=== PATIENT | male | born 1965 | race Asian ===

== ENCOUNTER 2019-05-28 06:22 | Emergency (ER) | payer OTHER ==
[~2019-05-28] VITALS: Ht 167.6 cm; Wt 73.0 kg
--- NOTE | 2019-05-28 06:38 | NUR ---
THIS IS A 53 YO MALE BIB [facility] FROM [facility], ACCOMAPNIED BY [facility] OFFICER, FOR WITNESS SYNCOPAL EPISODE WITH LOC, UNKNOWN DURATION OF LOSS OF CONSCIOUSNESS. PATIENT STATES HE FELT DIZZY WHEN HE GOT UP TO WALK, THEN PASSED OUT. PER EMS, PATIENT WAS FOUND TO BE BRADYCARDIC IN THE 40'S WHEN WOKE UP, WITH BP 60/PALP. PATIENT BP IMPROVING OVER TIME, LAST BP 112/70 WITH EMS. PATIENT A&OX4, GCS 15 AT THIS TIME, ANSWERS ALL QUESTIONS APPROPRIATELY, SPEAKING IN FULL SENTENCES, DENIES DIZZINESS OR LIGHTHEADED AT THIS TIME. ALL MONITORING IN PLACE, EKG DONE. VSS, NAD, LAW ENFORCEMENT IN ROOM
[2019-05-28 06:50] LABS: BASOPHILS # (AUTO) 0.03 x10^3/uL (0-0.1); BASOPHILS % (AUTO) 1 % (0-1); EOSINOPHILS # (AUTO) 0.07 x10^3/uL (0-0.4); EOSINOPHILS % (AUTO) 1 % (1-7); LYMPHOCYTES # (AUTO) 1.22 x10^3/uL (1-3.4); LYMPHOCYTES % (AUTO) 19 % (22-44); MD NO; MEAN CORPUSCULAR HEMOGLOBIN 29.9 pg (27.5-34.5); MEAN CORPUSCULAR HGB CONC 33.7 g/dL (33.2-36.2); MEAN CORPUSCULAR VOLUME 88.7 fL (81-97); MEAN PLATELET VOLUME 7.1 fL (7.4-10.4); MONOCYTES # (AUTO) 0.34 x10^3/uL (0.2-0.8); MONOCYTES % (AUTO) 6 % (2-9); NEUTROPHILS % (AUTO) 74 % (42-75); PLATELET COUNT 361 x10^3/uL (130-400); RED BLOOD COUNT 3.64 x10^6/uL (4.38-5.82); RED CELL DISTRIBUTION WIDTH 13.5 % (9.4-14.8)
--- NOTE | 2019-05-28 06:58 | NUR ---
REPORT GIVEN TO THADDEUS PAYNE. PLAN OF CARE DISCUSSED. LABS PENDING.
[2019-05-28 07:00] LABS: ALANINE AMINOTRANSFERASE 16 U/L (12-78); ALBUMIN 2.5 g/dL (3.4-5.0); ANION GAP 3 mmol/L (5-15); CALCIUM 7.8 mg/dL (8.5-10.1); CHLORIDE 112 mmol/L (98-107); CREATININE 0.72 mg/dL (0.7-1.3)
[2019-05-28 07:04] LABS: ALKALINE PHOSPHATASE 58 U/L (45-117); TOTAL PROTEIN 5.7 g/dL (6.4-8.2); TROPONIN I < 0.015 ng/mL (0.000-0.045)
[2019-05-28 07:07] LABS: BILIRUBIN,TOTAL < 0.1 mg/dL (0.2-1.0)
--- NOTE | 2019-05-28 07:23 | NUR ---
PT RESTING IN BED, OFFICER AT BEDSIDE.
[2019-05-28 08:27] VITALS: BP 97/61
--- NOTE | 2019-05-28 08:29 | NUR ---
DISCHARGE INSTRUCTIONS REVIEWED
== END 2019-05-28 08:49 | disposition home or self-care (01) ==
LOC: ED 06:38
DX: R55 Syncope and collapse (principal); I10 Essential (primary) hypertension; F17.200 Nicotine dependence, unspecified, uncomplicated
CPT/HCPCS: 36415; 80053; 84484; 85025; 93005; 99284